=== PATIENT | female | born 1970 ===

== ENCOUNTER → 2025-06-27 00:02 | Outpatient (CLI) | payer BC, SELFPAY ==
--- NOTE | 2025-06-27 08:00 | DI.MRI_ITS ---
Exam(s) MR LOWER JOINT RT WO EXAM: MR LOWER JOINT RT WO CLINICAL HISTORY: PAIN M70.61 TROCHANTERIC BURSITIS RT HIP TECHNIQUE: Multiplanar multisequence MRI of right hip was performed COMPARISON: RF XR HIP MIN 2V RT from 09/03/2024 MR MR LS SPINE WO CONTRAST from 04/17/2025 FINDINGS: Bones: There is no evidence of an occult fracture or avascular necrosis. No significant joint effusion or labral injury is present. The SI joints and symphysis pubis are well maintained. There is mild hyperintense signal seen on the T2 weighted images adjacent to the greater trochanter consistent with trochanteric bursitis. There is mild adjacent subchondral edema. Note is made of red marrow reconversion. This can be seen with both physiologic (smoking, obesity) and pathologic conditions (chronic anemia, diabetes, etc). Musculotendinous structures: Musculotendinous structures demonstrate no abnormality. Intrapelvic structures demonstrate no significant abnormality. Soft tissues: There is a 2.1 cm follicular simple cyst on the left ovary. IMPRESSION: Findings consistent with trochanteric bursitis involving the right hip. DATA REPOSITORY:
== END ==
LOC: DI 00:02
PROVIDERS: PCP Nurse Practitioner Family; Visit Provider Student in an Organized Health Care Education/Training Program
DX: M70.61 Trochanteric bursitis, right hip (principal)
CPT/HCPCS: 73721